=== PATIENT | female | born 1955 | race Hispanic/Latino ===

== ENCOUNTER 2023-04-21 19:39 | Emergency (ER) | payer OTHER ==
[~2023-04-21] VITALS: Ht 157.5 cm; Wt 58.1 kg
[2023-04-21 22:00] VITALS: BP 120/54; PULSE 70; RESP 20; O2SAT 97
== END 2023-04-21 22:39 | disposition home or self-care (01) ==
LOC: EDH 19:39
DX: R20.2 Paresthesia of skin (principal); Z98.890 Other specified postprocedural states
CPT/HCPCS: 70450

== ENCOUNTER 2023-09-29 14:48 | Emergency (ER) | payer OTHER ==
[~2023-09-29] VITALS: Ht 157.5 cm; Wt 57.6 kg
[2023-09-29 15:13] LABS: BASOPHILS # (AUTO) 0.01 K/uL (0.00-0.20); BASOPHILS % (AUTO) 0.2 % (0.0-5.0); EOSINOPHILS # (AUTO) 0.07 K/uL (0.00-0.70); EOSINOPHILS % (AUTO) 1.7 % (0.0-8.0); HEMATOCRIT 42.9 % (36-48); LYMPHOCYTES # (AUTO) 1.9 K/uL (1.0-4.8); LYMPHOCYTES % (AUTO) 43.6 % (21.0-51.0); MEAN CORPUSCULAR HEMOGLOBIN 29.6 pg (27.0-33.0); MEAN CORPUSCULAR HGB CONC 33.3 g/dL (32.0-36.0); MEAN CORPUSCULAR VOLUME 88.8 fL (79-99); MONOCYTES # (AUTO) 0.4 K/uL (0.1-1.0); MONOCYTES % (AUTO) 10.4 % (3.0-13.0); NEUTROPHILS # (AUTO) 1.9 K/uL (1.8-7.7); NEUTROPHILS % (AUTO) 44.1 % (40.0-77.0); PLATELET COUNT (AUTO) 198 K/uL (130-400); RED BLOOD CELL COUNT(AUTO) 4.83 MIL/uL (4.00-5.50); WHITE BLOOD COUNT (AUTO) 4.2 K/uL (4.8-10.8)
[2023-09-29] MEDS: KETOROLAC 15MG/ML VIAL (15MG/ML) IV ONE (15:26)
[2023-09-29 15:32] LABS: CREATININE 0.9 mg/dL (0.5-1.0); INR 0.95 (0.85-1.15); POTASSIUM 3.7 mmol/L (3.5-5.1); PROTHROMBIN TIME 10.3 SEC (9.6-11.6)
[2023-09-29 15:34] LABS: PARTIAL THROMBOPLASTIN TIME 27.8 SEC (26.3-35.5)
[2023-09-29] MEDS ORDERED: KETO10TA2 PO (16:28)
[2023-09-29 16:45] VITALS: BP 129/68; PULSE 78; RESP 16; O2SAT 99
== END 2023-09-29 17:03 | disposition home or self-care (01) ==
LOC: EDH 14:48
DX: R07.89 Other chest pain (principal)
CPT/HCPCS: 99283; 96374; 71045; 84484; 80048; 85025; 85610; 85730; 36415; 93005; J1885